=== PATIENT | male | born 1945 | race Caucasian/White ===

== ENCOUNTER → 2018-05-25 10:38 | Outpatient (CLI) | payer MEDICARE, BC, SELFPAY ==
[2018-05-25 12:09] LABS: Add Manual Diff / Slide Review NO; Eosinophils Percent Auto 1.5 % (2-4); Hematocrit 40.1 % (41-53); Hemoglobin 13.4 g/dL (13.5-17.5); Lymphocytes Percent Auto 26.5 % (25-40); Mean Corpuscular HGB Conc 33.3 % (30-36); Monocytes Percent Auto 11.4 % (3-14); Neutrophils Absolute Auto 2000 /uL (1500-7000); Neutrophils Percent Auto 59.6 % (50-75); Platelet Count 255 X10^3/uL (150-400); Red Blood Cell Count 4.32 X10^6/uL (4.5-5.9); Red Cell Distribution Width 13.9 % (11.6-14.8); White Blood Cell Count 3.4 X10^3/uL (4.5-11.0)
[2018-05-25 12:13] LABS: BUN Creatinine Ratio 15.7 (6-22); Blood Urea Nitrogen 11 mg/dL (9-20); Calcium 8.9 mg/dL (8.4-10.2); Carbon Dioxide 27 mmol/L (22-32); Chloride 100 mmol/L (98-107); Cholesterol 135 mg/dL (140-199); Estimated Glomerular Filt Rate > 60.0 mL/min (>60); Glucose 98 mg/dL (80-110); HDL Cholesterol 52 mg/dL (40-60); HEMOLYSIS < 15 (0-50); LDL Cholesterol Calculated 68 mg/dL (<100); Potassium 4.9 mmol/L (3.4-5.1); Sodium 140 mmol/L (137-145); Triglycerides 74 mg/dL (35-150)
[2018-05-25 15:18] LABS: Thyroid Stimulating Hormone 1.72 uIU/mL (0.47-4.68)
== END ==
PROVIDERS: Family Provider Family Medicine; PCP Family Medicine; Visit Provider Family Medicine
DX: I10 Essential (primary) hypertension (principal); D64.9 Anemia, unspecified; E87.1 Hypo-osmolality and hyponatremia
CPT/HCPCS: 36415; 80048; 80061; 84443; 85025; G0103

== ENCOUNTER → 2018-06-22 13:04 | Outpatient (CLI) | payer MEDICARE, BC, SELFPAY ==
--- NOTE | 2018-06-22 14:47 | P.PCN_ITS ---
Cardiac Stress Test Report Referral & Results Date Patient Seen: 06/22/18 Requesting provider: Vaughn Boyer Indication: Palpitations Rest ECG: Unremarkable Procedure Note: Today following both written and verbal informed consent the patient was exercised according to a standard Homero protocol patient went for a total of 5 min 1 sec achieving a maximum heart rate of 142 maximum systolic blood pressure of 220. This is approximately 7.0 METS. Exercise was terminated at this point because of targets were met. Patient was also given Cardiolite through a previously started Hep-Lock IV by the studio technician video operator approximately 1 minute prior to the cessation of exercise. There are no ST-T segment changes identified Normal heart rate and blood pressure response to exercise Functional aerobic impairment rated 20% sedentary scale although he probably could have continued somewhat longer Occasional PVCs were identified Impression: No evidence of ischemia Somewhat diminished exercise capacity Please see perfusion imaging report for further details Please note: Actual ECG tracings can be found in the PACS system.
--- NOTE | 2018-06-26 14:49 | DI.NM.S_ITS ---
DATE OF SERVICE: 06/22/2018 PROCEDURE: Exercise perfusion study. INDICATIONS: Palpitation, hypertension, abnormal EKG. RADIOPHARMACEUTICAL: 26.7 mCi technetium-99m Myoview IV was injected at stress and 26.5 mCi technetium-99m Myoview IV was injected at rest. CARDIAC STRESS: Patient underwent exercise perfusion study under the supervision of an attending staff. Patient walked on Homero protocol for 5 minutes 01 seconds and achieved 98% of target heart rate. There was hypertensive blood pressure response. Resting blood pressure 160/90. Peak blood pressure 220/98. Baseline rhythm was sinus. Stress EKG did not reveal any significant ischemic changes or arrhythmias. No significant symptoms reported. There were occasional PVCs. RAW DATA: There is increased subdiaphragmatic activity. GATED STUDY: Stress LV ejection fraction 72% without any obvious wall motion abnormalities. Resting end-diastolic volume is 112 mL. No transient ischemic dilatation. TID ratio is 0.98, which is within normal limits. Lung/heart ratio is 0.3, which is within normal limits. MYOCARDIAL PERFUSION SCAN: Stress supine images revealed [id number] sized mildly decreased perfusion of inferior wall and inferior apex which got significantly improved during prone images suggestive of diaphragmatic tissue attenuation artifact. I don't see any obvious convincing ischemia infarction pattern. CONCLUSION: I will call this study a likely normal myocardial perfusion study with diaphragmatic tissue attenuation artifact which got improved during prone images. Overall left ventricular (LV) function is preserved. There was hypertensive blood pressure response. No significant arrhythmias during stress. Functional aerobic impairment +25%. Overall as far as perfusion scan is concerned, this is a low-risk myocardial perfusion scan. Ruddy Stokes - ANGE/buzz/ doc#: [id number]/job#: [id number] dd: 06/26/2018 12:42:00 dt: 06/26/2018 14:38:00 DICTATING MD/COPIES TO: Suhail Archer MD COPIES MNE: MELVINA
== END ==
PROVIDERS: Family Provider Family Medicine; PCP Family Medicine; Visit Provider Family Medicine
DX: R00.2 Palpitations (principal); I10 Essential (primary) hypertension; R94.31 Abnormal electrocardiogram [ECG] [EKG]
CPT/HCPCS: 78452; 93016; 93017; 93018; A9502

== ENCOUNTER → 2018-07-24 13:54 | Outpatient (CLI) | payer MEDICARE, BC, SELFPAY ==
--- NOTE | 2018-08-18 14:44 | P.HOLT.S_ITS ---
Project Intern Report Referral & Results Date Patient Seen: 07/24/18 Requesting provider: Vaughn Boyer Indication: Palpitations Duration of monitoring (days): 7 Diary information: 2 patient diary entries associated with sinus rhythm and PACs as well as PVCs and Wenckebach 3 patient triggered events associated with sinus rhythm Wenckebach PACs Data: Minimum heart rate identified was 51 beats per minute at 14:18 on 07/25/2018 Maximum sinu heart rate was 114 beats per minute at 19:55 on 07/27/2018 Maximum overall heart rate was 144 beats per minute at 19:55 on 07/27/2018 this was during a 6 beat run of supraventricular tachycardia Patient had less than 1% of identified beats as PACs or PVCs There was a single 3.6 sec pause which was following a PVC Patient had possible third-degree heart block as well on 1 occasion. There were also episodes of Wenckebach block Impression: Patient with single pause of greater than 3 sec, evidence of probable third-degree heart block as well as second-degree heart block Mobitz type 1 Clinical correlation suggested but cardiology consultation should be considered.
== END ==
PROVIDERS: Family Provider Family Medicine; PCP Family Medicine; Visit Provider Family Medicine
DX: R00.2 Palpitations (principal); R42 Dizziness and giddiness
CPT/HCPCS: 0296T; 0298T

== ENCOUNTER 2019-05-12 18:39 | Emergency (ER) | payer MEDICARE, BC, SELFPAY ==
[2019-05-12] VITALS (10 sets, daily range): BP systolic 143–168; BP diastolic 73–82; PULSE 66–73; RESP 14–24; TEMP 36.9; O2SAT 98–100; BMI 28.3
--- NOTE | 2019-05-12 18:43 | ED_ITS ---
HPI - Syncope General Chief Complaint: Syncope Stated Complaint: syncope, initial hr in 40s. Time Seen by Provider: 05/12/19 18:42 Source: patient, family, EMS and old records reviewed Mode of arrival: EMS Limitations: no limitations History of Present Illness HPI narrative: This is a 74-year-old male who was at [facility], they had just walked in the door when he states he felt very tired and that he needed to sit down. Patient states that he sat down on a bench he states that he checked his heart rate and it was slow in the 40s he does not recall feeling like he was going to pass out but his states he sort of flopped backwards his eyes rolled into the back of his head for about 10 seconds and then he retained consciousness. Patient states that he has not had any chest pain or pressure, he denies any shortness of breath, he denies feeling lightheaded at any other point. He states he has had 2 prior episodes where he has had low heart rate and felt very tired and had similar symptoms. He denies any nausea, no vomiting, no diaphoresis. Denies any issues with diarrhea constipation, no urinary issues. No swelling in his extremities. He has been following with the cardiology PA, he takes medication for blood pressure and BPH. He denies any anticoagulants. He states that his cardiology PA Um they have been working towards getting him evaluated for a pacemaker. He has had multiple orthopedic surgeries. He has had a stress test last spring but no cardiac interventions or stents. Patient states that he does not smoke, he drinks 2 glasses of wine nightly he has not had any tonight, no illicit. He did recently return from a long distance trip to [place] via car with his . Related Data Home Medications Medication Instructions Recorded Confirmed amlodipine 5 mg tablet 5 mg PO DAILY 04/18/19 05/12/19 Previous Rx's Medication Instructions Recorded tamsulosin [Flomax] 0.4 mg PO QDAY #90 cap 10/05/18 losartan 50 mg tablet 50 mg PO BID #180 tab 04/17/19 Allergies Allergy/AdvReac Type Severity Reaction Status Date / Time No Known Drug Allergies Allergy Verified 04/18/19 09:23 Review of Systems Review of Systems ROS Unobtainable: All systems reviewed & are unremarkable except as noted in HPI and below Patient History Surgical History History of knee replacement History of tonsillectomy Status post appendectomy Family History (Updated 08/21/17 @ 00:00 by Conversion Provider) Father Heart disease Mother Age: 96 Aorta aneurysm Heart disease Breast cancer Social History (Updated 05/12/19 @ 18:48 by Angeli Hardin DO) marital status: Smoking Status: Never smoker alcohol intake: current substance use type: does not use Smoking Status: Never smoker Exam Narrative Exam Narrative: GEN: well nourished, well appearing male, alert and oriented x 3, patient appears to be in no mild distress. HEENT: Atraumatic, pupils are equal round reactive to light, extraocular movements are intact. Throat is clear without any exudates, erythema, tonsillar enlargement or uvular deviation HEART: Regular rate and rhythm without murmur, clicks, rubs. No carotid bruits, pulses are equal in upper and lower extremities LUNGS:Lungs clear to auscultation, no wheezes, rales, crackles, chest moves symmetrically ABD:bowel sounds normal, soft, non-tender, no guarding, rebound, rigidity, no masses noted, no hepatosplenomegaly :No CVA tenderness MSCL: Non-tender, no muscle atrophy, muscles strength 5/5 upper and lower extremities, full range of motion, normal gait NEURO:CN 2-12 intact, sensation normal. Initial Vital Signs Initial Vital Signs: Vital Signs Temperature 98.4 F 05/12/19 18:48 Pulse Rate 73 05/12/19 18:48 Respiratory Rate 16 05/12/19 18:48 Blood Pressure 154/79 H 05/12/19 18:48 Pulse Oximetry 99 05/12/19 18:48 Course Orders Ordered: Discontinued Medications Aspirin (Aspirin Chew) 324 mg PO NOW ONE Stop: 05/12/19 19:22 Last Admin: 05/12/19 19:36 Dose: 324 mg Documented by: JEAN CARLOS Heparin Sodium (Porcine) (Heparin) 6,700 unit 80 unit/kg (6700 unit) IV NOW ONE Stop: 05/12/19 19:22 Last Admin: 05/12/19 19:38 Dose: Not Given Documented by: EMILIANA Heparin Sodium (Porcine) (Heparin) 5,000 unit IV NOW ONE Stop: 05/12/19 19:40 Last Admin: 05/12/19 19:40 Dose: 5,000 unit Documented by: JEAN CARLOS Sodium Chloride (Normal Saline 0.9%) 1,000 mls @ 1,000 mls/hr IV BOLUS ONE Stop: 05/12/19 19:43 Last Infusion: 05/12/19 21:39 Dose: 0 mls/hr Documented by: JEAN CARLOS Admin: 05/12/19 19:00 Dose: 300 mls/hr Documented by: JEAN CARLOS Heparin Sodium/Dextrose (Heparin Drip) 25,000 unit in 500 mls @ 20.248 mls/hr IV CONT DAT; Protocol Last Titration: 05/12/19 21:55 Dose: 12 units/kg/hr, 20.248 mls/hr Documented by: JEAN CARLOS Admin: 05/12/19 19:41 Dose: 12 units/kg/hr, 20.248 mls/hr Documented by: JEAN CARLOS Vital Signs Vital signs: Vital Signs - 8 hr 05/12/19 21:15 05/12/19 21:30 Pulse Rate 67 68 Respiratory Rate 18 16 Blood Pressure [Right Arm] 167/80 H 158/82 H Pulse Oximetry 100 98 MDM - Syncope Lab Data Attestation: I reviewed the patient's lab results. Result diagrams: 05/12/19 18:49 05/12/19 18:49 Labs: Lab Results 05/12/19 05/12/19 05/12/19 Range/Units 18:49 18:49 18:49 WBC 4.7 (4.5-11.0) X10^3/uL RBC 4.28 L (4.5-5.9) X10^6/uL Hgb 13.6 (13.5-17.5) g/dL Hct 40.0 L (41-53) % MCV 93.5 (80-100) fL MCH 31.8 (26-34) PG MCHC 34.0 (30-36) % RDW 13.5 (11.6-14.8) % Plt Count 241 (150-400) X10^3/uL Neut % (Auto) 65.5 (50-75) % Lymph % (Auto) 22.9 L (25-40) % Clinton % (Auto) 8.8 (3-14) % Eos % (Auto) 1.7 L (2-4) % Baso % (Auto) 1.1 (0-2) % Neut # (Auto) 3100 (9540-0889) /uL Lymph # (Auto) 1100 (2244-2806) /uL Clinton # (Auto) 400 (0-900) /uL Eos # (Auto) 100 (0-450) /uL Baso # (Auto) 0 (0-100) /uL D-Dimer < 200 (<230) ng/mL Sodium 136 L (137-145) mmol/L Potassium 4.2 (3.4-5.1) mmol/L Chloride 101 (98-107) mmol/L Carbon Dioxide 25 (22-32) mmol/L BUN 17 (9-20) mg/dL Creatinine 0.70 (0.66-1.25) mg/dL Estimated GFR > 60.0 (>60) mL/min BUN/Creatinine Ratio 24.3 H (6-22) Glucose 120 H (80-110) mg/dL Calcium 8.8 (8.4-10.2) mg/dL Total Bilirubin 0.9 (0.2-1.3) mg/dL AST 39 (17-59) IU/L ALT 25 (<50) IU/L Alkaline Phosphatase 55 (38-126) U/L Total Creatine Kinase 77 (55-170) U/L CK-MB (CK-2) TNP CK-MB (CK-2) Rel Index TNP Troponin I 0.264 H* (0.01-0.034) ng/mL Total Protein 7.3 (6.3-8.2) g/dL Albumin 4.5 (3.5-5.0) g/dL Globulin 2.8 (1.7-4.1) g/dL Albumin/Globulin Ratio 1.6 (1.0-2.8) Point of Care Testing Glucose POC 115 Imaging Data Chest x-ray: My impression: nap. Radiologist's impression: [address] [address] XRay Report Signed Patient: Ruddy Stokes TMR#: [id number] : 3Acct:[id number] Age/Sex: 74 / MDate of Service: 05/12/19 Loc: ED Accession Number: [id number] Procedure: XR chest 1V Ordering Provider: Angeli Hardin D.O. PROCEDURE: XR CHEST 1V INDICATIONS: syncope TECHNIQUE: One view of the chest was acquired. COMPARISON: None. FINDINGS: Surgical changes and devices: None. Lungs and pleura: Left basilar scars or atelectasis. No pleural effusions or pneumothorax. Mediastinum: Mediastinal contours appear normal. Heart size is normal. Bones and chest wall: No suspicious bony lesions. Overlying soft tissues makenna ear unremarkable. Right acromioplasty and partial resection of the distal right clavicle. IMPRESSION: Left basilar scars or atelectasis. Dictated by: Venkat Archibald M.D. on 05/12/2019 at 19:44 Approved by: Venkat Archibald M.D. on 05/12/2019 at 19:45 ECG Data Attestation: I personally reviewed and interpreted this ECG as follows: Prior ECG tracings: available for review Interpretation: Sinus rhythm with first-degree AV block rate of 73 P are 331 QRS is 108 QTC of 418. Patient has similar EKG from 05/24/[address] which appears [address] in ST segments and AV block. [facility] Narrative Medical decision making narrative: Patient comes in with complaint of feeling very tired, and having a syncopal episode. He describes 2 kind of similar prior episodes. Today's troponin is elevated at 0.264, patient EKG has not RS are does not appear to have any new elevation as patient's prior EKG appears similar ST segments from 05/24/2018 and he has an AV block. Appears to be 1st degree although in his chart there is also mention of a 2nd degree block. Patient follows with [facility]. He has been asymptomatic and has never had any chest pain, shortness of breath or other symptoms. Spoke with Cardiology, Dr. Santos, states that patient has known LVH on echo, [id number] with what appears to be exertional type 2 av block on his prior evaluations. He is not on any AV lisa blocking medications. He recommends that patient may be to get a cardiac MRI at some point to evaluate f or amyloidosis or sarcoid and evaluation for possible pacemaker. He feels aspirin, heparin drip and statin is appropriate for treatment is happy to see the patient under the hospitalist service. Spoke with Dr. Morocho, hospitalist he accepts for transfer. Discussed aspirin heparin drip and dad in were appropriate for treatment. And Cardiology will be happy see the patient. Patient continues to be symptom-free in the department Discharge Plan Departure Patient Disposition: [facility] Clinical Impression: Non-STEMI (non-ST elevated myocardial infarction), Syncope Discharge Date/Time: 05/12/19 21:55 Prescriptions: No Action tamsulosin [Flomax] 0.4 mg capsule 0.4 mg PO QDAY Qty: 90 RF: 3 losartan 50 mg tablet 50 mg PO BID Qty: 180 RF: 0 amlodipine 5 mg tablet 5 mg PO DAILY RF: 0 Referrals: Vaughn Boyer MD [Primary Care Provider] -
[2019-05-12 18:55] LABS: Add Manual Diff / Slide Review NO; Basophils Absolute Auto 0 /uL (0-100); Basophils Percent Auto 1.1 % (0-2); Eosinophils Absolute Auto 100 /uL (0-450); Eosinophils Percent Auto 1.7 % (2-4); Hemoglobin 13.6 g/dL (13.5-17.5); Lymphocytes Absolute Auto 1100 /uL (1100-4500); Lymphocytes Percent Auto 22.9 % (25-40); Mean Corpuscular Hemoglobin 31.8 PG (26-34); Mean Corpuscular Volume 93.5 fL (80-100); Monocytes Absolute Auto 400 /uL (0-900); Monocytes Percent Auto 8.8 % (3-14); Neutrophils Absolute Auto 3100 /uL (1500-7000); Neutrophils Percent Auto 65.5 % (50-75); Platelet Count 241 X10^3/uL (150-400); Red Blood Cell Count 4.28 X10^6/uL (4.5-5.9); Red Cell Distribution Width 13.5 % (11.6-14.8); White Blood Cell Count 4.7 X10^3/uL (4.5-11.0)
[2019-05-12] MEDS: SODIUM CHLORIDE 0.9% 1,000 ML 300 ML IV (19:00)
[2019-05-12 19:05] LABS: Alanine Aminotransferase 25 IU/L (<50); Albumin 4.5 g/dL (3.5-5.0); Albumin Globulin Ratio 1.6 (1.0-2.8); Alkaline Phosphatase 55 U/L (38-126); Aspartate Aminotransferase 39 IU/L (17-59); BUN Creatinine Ratio 24.3 (6-22); Bilirubin Total 0.9 mg/dL (0.2-1.3); Blood Urea Nitrogen 17 mg/dL (9-20); Calcium 8.8 mg/dL (8.4-10.2); Carbon Dioxide 25 mmol/L (22-32); Chloride 101 mmol/L (98-107); Creatine Kinase 77 U/L (55-170); Estimated Glomerular Filt Rate > 60.0 mL/min (>60); Globulin 2.8 g/dL (1.7-4.1); Glucose 120 mg/dL (80-110); HEMOLYSIS 16 (0-50); Potassium 4.2 mmol/L (3.4-5.1); Sodium 136 mmol/L (137-145); Total Protein 7.3 g/dL (6.3-8.2)
[2019-05-12 19:12] LABS: D Dimer < 200 ng/mL (<230)
[2019-05-12 19:20] LABS: Troponin I 0.264 ng/mL (0.01-0.034)
[2019-05-12] MEDS: ASPIRIN 81 MG CHEW TAB 324 MG PO (19:36)
[2019-05-12] MEDS: HEPARIN 5,000 UNIT/ML VIAL 5000 UNIT IV (19:40)
[2019-05-12] MEDS: HEPARIN DRIP 25,000 UNIT/500 ML IV.SOLN 20.248 UNIT IV (19:41)
== END 2019-05-12 21:55 | disposition short-term general hospital (02) ==
PROVIDERS: Emergency Provider Emergency Medicine; Family Provider Family Medicine; PCP Family Medicine
DX: I21.4 Non-ST elevation (NSTEMI) myocardial infarction (principal); R55 Syncope and collapse
CPT/HCPCS: 36415; 71045; 80053; 82550; 84484; 85025; 85379; 93005; 96361; 96365; 96366; 96375; 99285; J1644

== ENCOUNTER 2019-08-15 14:00 | Outpatient (RCR) | payer MEDICARE, BC, SELFPAY | END 2019-11-15 15:00 | LOC: CAR 14:00 | PROVIDERS: Family Provider Family Medicine; PCP Family Medicine; Referring Provider Internal Medicine Cardiovascular Disease; Visit Provider Internal Medicine Cardiovascular Disease | DX: Z95.1 Presence of aortocoronary bypass graft (principal) | CPT/HCPCS: 93798 ==

== ENCOUNTER → 2020-03-10 08:27 | Outpatient (CLI) | payer MEDICARE, BC, SELFPAY ==
[2020-03-10 09:20] LABS: Add Manual Diff / Slide Review NO; Basophils Absolute Auto 100 /uL (0-100); Basophils Percent Auto 1.4 % (0-2); Eosinophils Absolute Auto 100 /uL (0-450); Eosinophils Percent Auto 3.2 % (2-4); Hematocrit 41.6 % (41-53); Hemoglobin 14.3 g/dL (13.5-17.5); Lymphocytes Absolute Auto 900 /uL (1100-4500); Lymphocytes Percent Auto 23.6 % (25-40); Mean Corpuscular HGB Conc 34.4 % (30-36); Mean Corpuscular Hemoglobin 32.3 PG (26-34); Mean Corpuscular Volume 93.8 fL (80-100); Monocytes Absolute Auto 400 /uL (0-900); Monocytes Percent Auto 11.4 % (3-14); Neutrophils Absolute Auto 2300 /uL (1500-7000); Neutrophils Percent Auto 60.4 % (50-75); Platelet Count 223 X10^3/uL (150-400); Red Blood Cell Count 4.43 X10^6/uL (4.5-5.9); Red Cell Distribution Width 13.8 % (11.6-14.8); White Blood Cell Count 3.9 X10^3/uL (4.5-11.0)
[2020-03-10 09:35] LABS: Alanine Aminotransferase 25 IU/L (<50); Albumin 4.5 g/dL (3.5-5.0); Albumin Globulin Ratio 1.6 (1.0-2.8); Alkaline Phosphatase 45 U/L (38-126); Aspartate Aminotransferase 40 IU/L (17-59); BUN Creatinine Ratio 15.5 (6-22); Bilirubin Total 0.8 mg/dL (0.2-1.3); Blood Urea Nitrogen 13 mg/dL (9-20); Calcium 9.3 mg/dL (8.4-10.2); Carbon Dioxide 31 mmol/L (22-32); Chloride 97 mmol/L (98-107); Cholesterol 156 mg/dL (140-199); Estimated Glomerular Filt Rate > 60.0 mL/min (>60); Globulin 2.8 g/dL (1.7-4.1); Glucose 104 mg/dL (80-110); HDL Cholesterol 51 mg/dL (40-60); HEMOLYSIS < 15 (0-50); LDL Cholesterol Calculated 79 mg/dL (<100); Sodium 133 mmol/L (137-145); Total Protein 7.3 g/dL (6.3-8.2); Triglycerides 132 mg/dL (35-150)
[2020-03-10 09:38] LABS: Potassium 5.4 mmol/L (3.4-5.1)
[2020-03-10 10:04] LABS: Thyroid Stimulating Hormone 2.53 uIU/mL (0.47-4.68)
== END ==
PROVIDERS: Family Provider Family Medicine; PCP Family Medicine; Referring Provider Family Medicine; Visit Provider Family Medicine
DX: I25.812 Atherosclerosis of bypass graft of coronary artery of transplanted heart without angina pectoris (principal); I10 Essential (primary) hypertension
CPT/HCPCS: 36415; 80053; 80061; 84443; 85025

== ENCOUNTER → 2020-03-25 09:31 | Outpatient (CLI) | payer MEDICARE, BC, SELFPAY ==
[2020-03-25 13:30] LABS: Prostate Specific Antigen Scrn 0.272 ng/mL (0.1-4.0)
== END ==
PROVIDERS: Family Provider Family Medicine; PCP Family Medicine; Referring Provider Family Medicine; Visit Provider Family Medicine
DX: Z12.5 Encounter for screening for malignant neoplasm of prostate (principal)
CPT/HCPCS: 36415; G0103

== ENCOUNTER → 2020-06-09 14:04 | Outpatient (CLI) | payer MEDICARE, BC, SELFPAY ==
[2020-06-10 17:10] LABS: Fecal Immunochemical Test Negative (Negative)
== END ==
PROVIDERS: Family Provider Family Medicine; PCP Family Medicine; Referring Provider Family Medicine; Visit Provider Family Medicine
DX: Z12.11 Encounter for screening for malignant neoplasm of colon (principal)
CPT/HCPCS: 82274